=== PATIENT | male | born 1965 | race Caucasian/White ===

== ENCOUNTER 2017-04-17 13:18 | Inpatient (IN) | payer OTHER ==
[~2017-04-17] VITALS: Ht 180.3 cm; Wt 108.9 kg
[~2017-04-17 13:18] MED LIST: CATAPRES0.2 MG PO; CIPRO500 MG PO; CIPROFLOXACIN500 M1 PO; CIPROFLOXACIN500 M3 PO; COREG25 MG PO; FLAGYL 250 MG250 MG PO; FLAGYL500 MG PO; HYDROCODONE-AP1 EAC6 PO; LIPITOR 10 MG10 M1 PO; NOHOMEMEDICATIONS; NORCO 5-325 TA1 EACH PO; SENNA PO; ZOFRAN ODT4 MG PO
[2017-04-17 13:35] VITALS: BP 162/91
[2017-04-17 13:47] LABS: ABSOLUTE EOSINOPHILS 0.1 thou/uL (0.0-0.7); ABSOLUTE LYMPHOCYTES 1.4 thou/uL (0.8-5.3); ABSOLUTE MONOCYTES 0.7 thou/uL (0.0-1.2); ABSOLUTE NEUTROPHILS 8.1 thou/uL (1.6-8.1); BASOPHILS 0.5 %; EOSINOPHILS 0.9 %; HEMATOCRIT 40.3 % (42.0-52.0); HEMOGLOBIN 13.4 gm/dL (14.0-18.0); LYMPHOCYTES 13.4 %; MCH 30.6 pg (26.0-34.0); MCHC 33.2 g/dL (28.0-37.0); MONOCYTES 6.4 %; MPV 7.7 fl. (7.2-11.1); NUCLEATED RBCS 0 /100WBC; PLATELET COUNT* 240 thou/uL (150-400); POLYS 78.8 %; RBC 4.38 mil/uL (4.50-6.00); RDW-CV 15.7 % (10.5-14.5); WBC 10.3 thou/uL (4.0-11.0)
[2017-04-17 13:55] LABS: CALCIUM 8.6 mg/dL (8.5-10.1)
[2017-04-17 14:00] LABS: ALBUMIN 3.7 g/dL (3.4-5.0); TOTAL BILIRUBIN 0.4 mg/dL (<0.1-1.0); TOTAL PROTEIN 7.9 g/dL (6.4-8.2)
[2017-04-17 17:50] VITALS: BP 144/71
[2017-04-17 20:00] VITALS: BP 141/89
[2017-04-18] VITALS: BP 143/92
[2017-04-18 04:01] LABS: HEMATOCRIT 37.6 % (42.0-52.0); HEMOGLOBIN 12.5 gm/dL (14.0-18.0); MCH 30.5 pg (26.0-34.0); MCHC 33.2 g/dL (28.0-37.0); MCV 91.9 fL (80.0-100.0); MPV 7.8 fl. (7.2-11.1); RBC 4.09 mil/uL (4.50-6.00); RDW-CV 15.5 % (10.5-14.5); WBC 8.6 thou/uL (4.0-11.0)
[2017-04-18 04:35] LABS: ALBUMIN 3.4 g/dL (3.4-5.0); CALCIUM 8.2 mg/dL (8.5-10.1); CREATININE 1.1 mg/dL (0.6-1.3); MAGNESIUM 1.9 mg/dL (1.8-2.4); POTASSIUM 3.9 mmol/L (3.5-5.1); TOTAL BILIRUBIN 0.9 mg/dL (<0.1-1.0); TOTAL PROTEIN 6.8 g/dL (6.4-8.2)
[2017-04-18 04:37] VITALS: BP 177/94
[2017-04-18 08:45] VITALS: BP 142/91
[2017-04-18 11:57] VITALS: BP 144/86
[2017-04-18 14:52] LABS: URINE BILIRUBIN NEGATIVE (Negative); URINE BLOOD NEGATIVE (Negative); URINE CLARITY CLEAR; URINE COLOR YELLOW; URINE GLUCOSE-RANDOM NEGATIVE (Negative); URINE KETONES NEGATIVE (Negative); URINE LEUKOCYTES-REFLEX NEGATIVE (Negative); URINE NITRITE-REFLEX NEGATIVE (Negative); URINE PROTEIN TRACE (Negative); URINE SPECIFIC GRAVITY 1.025 (1.005-1.030); URINE UROBILINOGEN 0.2 E.U./dl (0.2-1.0)
[2017-04-18 16:00] VITALS: BP 150/95
[2017-04-18 23:39] VITALS: BP 130/82
[2017-04-19 04:40] LABS: HEMATOCRIT 34.3 % (42.0-52.0); HEMOGLOBIN 11.4 gm/dL (14.0-18.0); MCH 30.6 pg (26.0-34.0); MCHC 33.2 g/dL (28.0-37.0); MCV 92.3 fL (80.0-100.0); RBC 3.72 mil/uL (4.50-6.00); RDW-CV 15.7 % (10.5-14.5); WBC 7.6 thou/uL (4.0-11.0)
[2017-04-19 05:03] LABS: ALBUMIN 2.9 g/dL (3.4-5.0); CALCIUM 8.3 mg/dL (8.5-10.1); POTASSIUM 3.2 mmol/L (3.5-5.1); TOTAL BILIRUBIN 0.6 mg/dL (<0.1-1.0)
[2017-04-19 08:30] VITALS: BP 122/76
[2017-04-19 15:30] VITALS: BP 131/86
[2017-04-19 20:45] VITALS: BP 154/97
[2017-04-20 00:56] VITALS: BP 140/90
[2017-04-20 04:32] LABS: HEMATOCRIT 32.5 % (42.0-52.0); HEMOGLOBIN 10.7 gm/dL (14.0-18.0); MCH 30.7 pg (26.0-34.0); MCV 93.1 fL (80.0-100.0); MPV 8.1 fl. (7.2-11.1); RBC 3.49 mil/uL (4.50-6.00); RDW-CV 15.6 % (10.5-14.5); WBC 6.2 thou/uL (4.0-11.0)
[2017-04-20 04:59] LABS: ALBUMIN 2.7 g/dL (3.4-5.0); CALCIUM 8.5 mg/dL (8.5-10.1); POTASSIUM 4.1 mmol/L (3.5-5.1); TOTAL BILIRUBIN 0.3 mg/dL (<0.1-1.0); TOTAL PROTEIN 6.7 g/dL (6.4-8.2)
[2017-04-20 08:30] VITALS: BP 155/87
[2017-04-20] MEDS ORDERED: FLAGYL500 MG PO ×2 (09:47→15:11)
[2017-04-20] MEDS ORDERED: AUGMENTIN 875-1 EACH PO (09:47)
[2017-04-20 14:56] VITALS: BP 155/87
[2017-04-20 15:52] VITALS: BP 155/87
== END 2017-04-20 15:53 | disposition home or self-care (01) | DRG 392 ==
LOC: M.ERS 13:18 → M.ORTHSURG 16:53 → M.TBA-ER 16:53 → M.ORTHSURG 17:37
PROVIDERS: Physician Assistant; ADMIT Internal Medicine
DX: K57.20 Diverticulitis of large intestine with perforation and abscess without bleeding (principal); I10 Essential (primary) hypertension; E78.00 Pure hypercholesterolemia, unspecified; Z88.8 Allergy status to other drugs, medicaments and biological substances; Z90.49 Acquired absence of other specified parts of digestive tract

== ENCOUNTER 2017-04-21 10:13 | Emergency (ER) | payer OTHER ==
[~2017-04-21] VITALS: Ht 180.3 cm; Wt 108.9 kg
[~2017-04-21 10:13] MED LIST changes: +AUGMENTIN 875-1 EACH PO
[2017-04-21 11:51] VITALS: BP 136/86
== END 2017-04-21 11:51 | disposition home or self-care (01) ==
LOC: M.ERS 10:13
DX: M25.511 Pain in right shoulder (principal); I10 Essential (primary) hypertension; E78.00 Pure hypercholesterolemia, unspecified; F17.210 Nicotine dependence, cigarettes, uncomplicated; Z88.1 Allergy status to other antibiotic agents; V43.52XA Car driver injured in collision with other type car in traffic accident, initial encounter; Y93.I9 Activity, other involving external motion; Y92.89 Other specified places as the place of occurrence of the external cause; Y99.8 Other external cause status

== ENCOUNTER 2017-06-06 12:06 | Emergency (ER) | payer OTHER ==
[~2017-06-06] VITALS: Ht 180.3 cm; Wt 106.6 kg
[2017-06-06] MEDS ORDERED: CIPRO500 MG PO (12:17)
[2017-06-06 13:03] LABS: ABSOLUTE MONOCYTES 0.5 thou/uL (0.0-1.2); ABSOLUTE NEUTROPHILS 6.9 thou/uL (1.6-8.1); BASOPHILS 0.3 %; EOSINOPHILS 0.2 %; HEMATOCRIT 42.9 % (42.0-52.0); HEMOGLOBIN 14.2 gm/dL (14.0-18.0); LYMPHOCYTES 11.9 %; MCHC 33.2 g/dL (28.0-37.0); MCV 93.4 fL (80.0-100.0); MONOCYTES 6.4 %; MPV 8.2 fl. (7.2-11.1); NUCLEATED RBCS 0 /100WBC; PLATELET COUNT* 215 thou/uL (150-400); POLYS 81.2 %; RBC 4.59 mil/uL (4.50-6.00); RDW-CV 16.8 % (10.5-14.5); WBC 8.5 thou/uL (4.0-11.0)
[2017-06-06 13:08] LABS: CALCIUM 9.2 mg/dL (8.5-10.1); POTASSIUM 3.9 mmol/L (3.5-5.1)
[2017-06-06 13:13] LABS: TOTAL BILIRUBIN 0.8 mg/dL (<0.1-1.0); TOTAL PROTEIN 8.3 g/dL (6.4-8.2)
[2017-06-06] MEDS ORDERED: FLAGYL500 MG PO (14:53)
[2017-06-06] MEDS ORDERED: NORCO 5-325 TA1 EACH PO (14:53)
[2017-06-06] MEDS ORDERED: ZOFRAN ODT4 MG PO (14:53)
[2017-06-06] MEDS ORDERED: LEVAQUIN 750 M750 MG PO (14:53)
[2017-06-06 14:56] LABS: URINE BILIRUBIN NEGATIVE (Negative); URINE BLOOD NEGATIVE (Negative); URINE CLARITY CLEAR; URINE COLOR YELLOW; URINE GLUCOSE-RANDOM NEGATIVE (Negative); URINE KETONES NEGATIVE (Negative); URINE LEUKOCYTES-REFLEX NEGATIVE (Negative); URINE NITRITE-REFLEX NEGATIVE (Negative); URINE PROTEIN NEGATIVE (Negative); URINE SPECIFIC GRAVITY <= 1.005 (1.005-1.030); URINE UROBILINOGEN 0.2 E.U./dl (0.2-1.0)
[2017-06-06 15:02] VITALS: BP 153/103
== END 2017-06-06 15:01 | disposition home or self-care (01) ==
LOC: M.ERS 12:06
PROVIDERS: Personal Emergency Response Attendant
DX: K57.92 Diverticulitis of intestine, part unspecified, without perforation or abscess without bleeding (principal); I10 Essential (primary) hypertension; E78.00 Pure hypercholesterolemia, unspecified; F17.210 Nicotine dependence, cigarettes, uncomplicated; Z88.8 Allergy status to other drugs, medicaments and biological substances

== ENCOUNTER 2017-08-10 10:47 | Emergency (ER) | payer OTHER ==
[~2017-08-10] VITALS: Ht 182.9 cm; Wt 106.6 kg
[~2017-08-10 10:47] MED LIST changes: +LEVAQUIN 750 M750 MG PO
[2017-08-10 11:58] VITALS: BP 122/84
== END 2017-08-10 11:59 | disposition home or self-care (01) ==
LOC: M.ERS 10:47
DX: M79.671 Pain in right foot (principal); I10 Essential (primary) hypertension; E78.00 Pure hypercholesterolemia, unspecified; F17.210 Nicotine dependence, cigarettes, uncomplicated; Z88.8 Allergy status to other drugs, medicaments and biological substances

== ENCOUNTER 2017-12-21 11:47 | Emergency (ER) | payer OTHER ==
[~2017-12-21] VITALS: Ht 180.3 cm; Wt 108.9 kg
[2017-12-21] MEDS ORDERED: MOBIC15 MG PO (12:18)
[2017-12-21] MEDS ORDERED: CRESTOR20 MG PO (12:18)
[2017-12-21] MEDS ORDERED: ZETIA10 MG PO (12:18)
[2017-12-21] MEDS ORDERED: BENICAR40 MG PO (12:18)
[2017-12-21 13:01] LABS: ABSOLUTE EOSINOPHILS 0.2 thou/uL (0.0-0.7); ABSOLUTE LYMPHOCYTES 0.9 thou/uL (0.8-5.3); ABSOLUTE MONOCYTES 0.6 thou/uL (0.0-1.2); ABSOLUTE NEUTROPHILS 6.1 thou/uL (1.6-8.1); BASOPHILS 0.2 %; EOSINOPHILS 2.1 %; HEMATOCRIT 23.2 % (42.0-52.0); HEMOGLOBIN 7.7 gm/dL (14.0-18.0); LYMPHOCYTES 11.4 %; MCH 32.5 pg (26.0-34.0); MCHC 33.3 g/dL (28.0-37.0); MCV 97.7 fL (80.0-100.0); MONOCYTES 7.3 %; MPV 7.3 fl. (7.2-11.1); NUCLEATED RBCS 0 /100WBC; PLATELET COUNT* 284 thou/uL (150-400); RBC 2.38 mil/uL (4.50-6.00); RDW-CV 15.6 % (10.5-14.5); WBC 7.7 thou/uL (4.0-11.0)
[2017-12-21 13:14] LABS: ANION GAP 7 mmol/L (7-16); APTT 24.5 Seconds (25.0-31.3); BUN 16 mg/dL (7-18); CALCIUM 8.6 mg/dL (8.5-10.1); CHLORIDE 101 mmol/L (98-107); CO2 31 mmol/L (21-32); GLUCOSE 99 mg/dL (70-99); INR 0.9; POTASSIUM 3.7 mmol/L (3.5-5.1); PROTIME 9.7 Seconds (9.20-11.50); SODIUM 139 mmol/L (136-145)
[2017-12-21 13:25] LABS: ALBUMIN 3.4 g/dL (3.4-5.0); ALKALINE PHOSPHATASE 53 U/L (46-116); NT-PRO BRAIN NAT PEPTIDE 221 pg/mL (<300); SGOT 25 U/L (15-37); TOTAL BILIRUBIN 0.4 mg/dL (<0.1-1.0); TOTAL PROTEIN 6.7 g/dL (6.4-8.2); TROPONIN-I LEVEL <0.06 ng/mL (<0.06)
[2017-12-21 13:26] LABS: SGPT < 6 U/L (30-65)
[2017-12-21] MEDS ORDERED: VENTOLIN HFA 1818 GM INH (15:16)
[2017-12-21] MEDS ORDERED: LEVAQUIN 500 M500 M3 PO (15:16)
[2017-12-21 16:04] VITALS: BP 135/78
--- NOTE | 2017-12-22 11:20 | EKG ---
[place] [address] ELECTROCARDIOGRAM REPORT Name: JAVON MCGINNIS Room: [facility]#: [id number] Admission: 12/21/17 Attend Phys: Discharge: 12/21/17 Date of : 63 Report #: [id number] THIS REPORT FOR: //name// [facility] ED Test Date: 2017-12-21 Test Time: 13:04:43 Pat Name: JAVON MCGINNIS Department: Room: Gender: M Can Line Operator: [facility] : 1965 Requested By: Bria Griffin Order Number: [id number] MD: Drake Khanna Measurements Intervals [place] Rate: 88 P: 12 ID: 148 QRS: -16 QRSD: 100 T: 33 QT: 354 QTc: 429 Interpretive Statements Sinus rhythm Borderline left axis deviation RSR' in V1 or V2, right VCD or RVH Baseline wander in lead(s) V3 No previous ECG available for comparison Electronically Signed On 12-22-2017 11:20:42 MANAGER STERILE PROCESSING by Drake Khanna [email or web address] <ELECTRONICALLY SIGNED> By: Drake Khanna MD, FAC 12/22/17 1120 1304 1304 Drake Khanna MD, [facility] /EPI
== END 2017-12-21 16:04 | disposition home or self-care (01) ==
LOC: M.ERS 11:47
PROVIDERS: Nurse Practitioner Family
DX: J18.9 Pneumonia, unspecified organism (principal); D64.9 Anemia, unspecified; I10 Essential (primary) hypertension; E78.00 Pure hypercholesterolemia, unspecified; F17.210 Nicotine dependence, cigarettes, uncomplicated; Z88.8 Allergy status to other drugs, medicaments and biological substances

== ENCOUNTER 2018-05-26 07:04 | Emergency (ER) | payer OTHER ==
[~2018-05-26] VITALS: Ht 180.3 cm; Wt 108.9 kg
[~2018-05-26 07:04] MED LIST changes: +BENICAR40 MG PO; +CRESTOR20 MG PO; +LEVAQUIN 500 M500 M3 PO; +MOBIC15 MG PO; +VENTOLIN HFA 1818 GM INH; +ZETIA10 MG PO
[2018-05-26] MEDS ORDERED: CLONIDINE HCL0.3 M3 PO (07:15)
[2018-05-26] MEDS ORDERED: HYDRALAZINE 2525 MG PO (07:15)
[2018-05-26 07:24] LABS: URINE BILIRUBIN NEGATIVE (Negative); URINE BLOOD NEGATIVE (Negative); URINE CLARITY CLEAR; URINE COLOR YELLOW; URINE GLUCOSE-RANDOM NEGATIVE (Negative); URINE KETONES TRACE (Negative); URINE LEUKOCYTES-REFLEX NEGATIVE (Negative); URINE NITRITE-REFLEX NEGATIVE (Negative); URINE PROTEIN NEGATIVE (Negative); URINE UROBILINOGEN 0.2 E.U./dl (0.2-1.0)
[2018-05-26 07:43] LABS: HEMATOCRIT 37.3 % (42.0-52.0); HEMOGLOBIN 11.8 gm/dL (14.0-18.0); MCH 25.8 pg (26.0-34.0); MCHC 31.7 g/dL (28.0-37.0); MCV 81.3 fL (80.0-100.0); MPV 8.2 fl. (7.2-11.1); NUCLEATED RBCS 0 /100WBC; PLATELET COUNT* 254 thou/uL (150-400); RBC 4.59 mil/uL (4.50-6.00); RDW-CV 19.6 % (10.5-14.5); WBC 8.7 thou/uL (4.0-11.0)
[2018-05-26 08:06] LABS: ALBUMIN 3.6 g/dL (3.4-5.0); ALKALINE PHOSPHATASE 72 U/L (46-116); ANION GAP 8 mmol/L (7-16); BUN 15 mg/dL (7-18); CALCIUM 8.9 mg/dL (8.5-10.1); CHLORIDE 104 mmol/L (98-107); CO2 26 mmol/L (21-32); CREATININE 1.2 mg/dL (0.6-1.3); GLUCOSE 117 mg/dL (70-99); LIPASE 111 U/L (73-393); POTASSIUM 4.6 mmol/L (3.5-5.1); SGOT 22 U/L (15-37); SGPT 22 U/L (30-65); SODIUM 138 mmol/L (136-145); TOTAL BILIRUBIN 0.5 mg/dL (<0.1-1.0); TOTAL PROTEIN 7.4 g/dL (6.4-8.2); TROPONIN-I LEVEL <0.06 ng/mL (<0.06)
[2018-05-26 08:55] LABS: ABSOLUTE BASOPHILS 0.1 thou/uL (0.0-0.2); ABSOLUTE EOSINOPHILS 0.1 thou/uL (0.0-0.7); ABSOLUTE LYMPHOCYTES 1.3 thou/uL (0.8-5.3); ABSOLUTE MONOCYTES 0.1 thou/uL (0.0-1.2); ABSOLUTE NEUTROPHILS 7.1 thou/uL (1.6-8.1)
[2018-05-26 08:56] LABS: GIANT PLATELETS OCCASIONAL; PLATELET ESTIMATE ADEQUATE
[2018-05-26 08:57] LABS: ANISOCYTOSIS 2+; HYPOCHROMASIA 1+
[2018-05-26 08:58] LABS: OVALOCYTES Occasional
[2018-05-26 08:59] LABS: POIKILOCYTOSIS Occasional
[2018-05-26] MEDS ORDERED: FLAGYL500 M1 PO (09:15)
[2018-05-26] MEDS ORDERED: CIPROFLOXACIN500 M1 PO (09:15)
[2018-05-26 09:22] VITALS: BP 103/64
--- NOTE | 2018-05-26 14:39 | EKG ---
[place] [address] ELECTROCARDIOGRAM REPORT Name: JAVON MCGINNIS Room: [facility]#: [id number] Admission: 05/26/18 Attend Phys: Discharge: 05/26/18 Date of : 63 Report #: [id number] THIS REPORT FOR: //name// [facility] ED Test Date: 2018-05-26 Test Time: 07:39:06 Pat Name: JAVON MCGINNIS Department: Room: Gender: M Brand Protection Manager: : 1965 Requested By: Javon Galarza Order Number: [id number] MD: Kavon Tatum Measurements Intervals [place] Rate: 90 P: 7 UT: 137 QRS: -38 QRSD: 99 T: 17 QT: 348 QTc: 426 Interpretive Statements Sinus rhythm Left axis deviation Baseline wander in lead(s) V3 Compared to ECG 12/21/2017 13:04:43 Right ventricular hypertrophy no longer present Electronically Signed On 05-26-2018 14:39:47 CDT by Kavon Tatum [email or web address] <ELECTRONICALLY SIGNED> By: Kavon Tatum MD, [facility] 05/26/18 1439 0739 0739 Kavon Tatum MD, FAC /EPI
== END 2018-05-26 09:22 | disposition home or self-care (01) ==
LOC: M.ERS 07:04
PROVIDERS: Family Medicine
DX: K57.32 Diverticulitis of large intestine without perforation or abscess without bleeding (principal); R11.2 Nausea with vomiting, unspecified; F17.210 Nicotine dependence, cigarettes, uncomplicated; I10 Essential (primary) hypertension; E78.00 Pure hypercholesterolemia, unspecified; Z88.8 Allergy status to other drugs, medicaments and biological substances; Z96.652 Presence of left artificial knee joint

== ENCOUNTER 2018-07-16 09:43 | Emergency (ER) | payer OTHER ==
[~2018-07-16] VITALS: Ht 180.3 cm; Wt 108.9 kg
[~2018-07-16 09:43] MED LIST changes: +CLONIDINE HCL0.3 M3 PO; +FLAGYL500 M1 PO; +HYDRALAZINE 2525 MG PO
[2018-07-16 10:06] LABS: URINE BLOOD NEGATIVE (Negative); URINE CLARITY CLEAR; URINE COLOR DARK YELLOW; URINE GLUCOSE-RANDOM NEGATIVE (Negative); URINE KETONES 1+ (Negative); URINE LEUKOCYTES-REFLEX NEGATIVE (Negative); URINE NITRITE-REFLEX NEGATIVE (Negative); URINE PROTEIN 1+ (Negative); URINE SPECIFIC GRAVITY >= 1.030 (1.005-1.030)
[2018-07-16 10:10] LABS: ICTOTEST (BILI CONFIRMATORY) Negative (Negative); URINE BILIRUBIN 1+ (Negative)
[2018-07-16 10:21] LABS: ABSOLUTE MONOCYTES 0.6 thou/uL (0.0-1.2); ABSOLUTE NEUTROPHILS 5.9 thou/uL (1.6-8.1); BASOPHILS 0.5 %; EOSINOPHILS 0.5 %; HEMOGLOBIN 12.2 gm/dL (14.0-18.0); LYMPHOCYTES 12.7 %; MCH 27.8 pg (26.0-34.0); MCHC 33.1 g/dL (28.0-37.0); MCV 83.9 fL (80.0-100.0); MONOCYTES 7.6 %; MPV 8.3 fl. (7.2-11.1); NUCLEATED RBCS 0 /100WBC; PLATELET COUNT* 177 thou/uL (150-400); POLYS 78.7 %; RBC 4.41 mil/uL (4.50-6.00); RDW-CV 20.3 % (10.5-14.5); WBC 7.5 thou/uL (4.0-11.0)
[2018-07-16 10:29] LABS: ANION GAP 13 mmol/L (7-16); BUN 14 mg/dL (7-18); CALCIUM 9.3 mg/dL (8.5-10.1); CHLORIDE 103 mmol/L (98-107); CO2 24 mmol/L (21-32); CREATININE 1.2 mg/dL (0.6-1.3); GLUCOSE 114 mg/dL (70-99); POTASSIUM 3.9 mmol/L (3.5-5.1); SODIUM 140 mmol/L (136-145)
[2018-07-16 10:38] LABS: ALBUMIN 3.7 g/dL (3.4-5.0); ALKALINE PHOSPHATASE 74 U/L (46-116); LIPASE 165 U/L (73-393); SGOT 27 U/L (15-37); SGPT 25 U/L (30-65); TOTAL BILIRUBIN 0.7 mg/dL (<0.1-1.0); TOTAL PROTEIN 7.8 g/dL (6.4-8.2); TROPONIN-I LEVEL <0.06 ng/mL (<0.06)
[2018-07-16 10:59] LABS: ANISOCYTOSIS 1+; PLATELET ESTIMATE ADEQUATE; POIKILOCYTOSIS 1+
[2018-07-16 11:01] LABS: OVALOCYTES 1+
[2018-07-16] MEDS ORDERED: FLAGYL500 M1 PO (11:26)
[2018-07-16] MEDS ORDERED: ZOFRAN ODT4 MG DISSOLVE (11:26)
[2018-07-16] MEDS ORDERED: CIPRO500 M1 PO (11:26)
[2018-07-16] MEDS ORDERED: NORCO 5-325 TA1 EAC1 PO (11:26)
[2018-07-16 12:00] VITALS: BP 107/70
--- NOTE | 2018-07-16 16:32 | EKG ---
[place] [address] ELECTROCARDIOGRAM REPORT Name: JAVON MCGINNIS Room: [facility]#: [id number] Admission: 07/16/18 Attend Phys: Discharge: 07/16/18 Date of : 63 Report #: [id number] THIS REPORT FOR: //name// [facility] ED Test Date: 2018-07-16 Test Time: 10:05:06 Pat Name: JAVON MCGINNIS Department: Room: Gender: M Human Resource Assistant: [place] : 1965 Requested By: Mikey Cavanaugh Order Number: [id number] MD: Mayank Benítez Measurements Intervals [place] Rate: 94 P: -4 CA: 137 QRS: -37 QRSD: 106 T: 14 QT: 343 QTc: 429 Interpretive Statements Sinus rhythm Incomplete RBBB and LAFB Abnormal R-wave progression, early transition Compared to ECG 05/26/2018 07:39:06 Incomplete right bundle-branch block now present Electronically Signed On 07-16-2018 16:32:33 CDT by Mayank Benítez [email or web address] <ELECTRONICALLY SIGNED> By: Mayank Benítez MD, [facility] 07/16/18 6019 1005 1005 Mayank Benítez MD, [facility] /EPI
== END 2018-07-16 12:00 | disposition home or self-care (01) ==
LOC: M.ERS 09:43
PROVIDERS: Emergency Medicine Emergency Medical Services
DX: K57.32 Diverticulitis of large intestine without perforation or abscess without bleeding (principal); R11.2 Nausea with vomiting, unspecified; R19.7 Diarrhea, unspecified; I10 Essential (primary) hypertension; E78.00 Pure hypercholesterolemia, unspecified; F17.210 Nicotine dependence, cigarettes, uncomplicated; Z88.8 Allergy status to other drugs, medicaments and biological substances; Z96.652 Presence of left artificial knee joint

== ENCOUNTER 2018-09-15 06:55 | Inpatient (IN) | payer OTHER ==
[~2018-09-15] VITALS: Ht 180.3 cm; Wt 106.6 kg
[~2018-09-15 06:55] MED LIST changes: +CIPRO500 M1 PO; +NORCO 5-325 TA1 EAC1 PO; +ZOFRAN ODT4 MG DISSOLVE
[2018-09-15 08:15] LABS: HEMATOCRIT 42.1 % (42.0-52.0); HEMOGLOBIN 14.1 gm/dL (14.0-18.0); MCH 30.7 pg (26.0-34.0); MCHC 33.5 g/dL (28.0-37.0); MCV 91.6 fL (80.0-100.0); MPV 7.7 fl. (7.2-11.1); RBC 4.6 mil/uL (4.50-6.00); RDW-CV 18.2 % (10.5-14.5); WBC 6.1 thou/uL (4.0-11.0)
[2018-09-15 08:26] VITALS: BP 148/103
[2018-09-15 08:27] LABS: CREATININE 1.1 mg/dL (0.6-1.3); POTASSIUM 3.6 mmol/L (3.5-5.1)
[2018-09-15 18:58] VITALS: BP 129/84
--- NOTE | 2018-09-15 19:00 | NUR ---
PT ARRIVED FROM SURGERY ABOUT 174. A&Ox4 VITALS STABLE. ON 3LO2 AND CAPNO. IV PATENT, INFUSING. NPO UNTIL FURTHER INSTRUCTION FROM DR YAN. VIKAS PATENT. SCDs IN PLACE. 6 SURGICAL SITES C/D/I. PAIN CONTROLLED. COMPLAINING OF EYE IRRITATION, FLUSHED WITH SALINE, NOTE SENT TO DR FOR POSSIBLE EYE DROPS. FALL PRECAUTIONS IN PLACE. PT HAS NOT GOT UP ON SHIFT. CALL LIGHT WITHIN REACH. WILL CONTINUE TO MONITOR.
[2018-09-15 20:00] VITALS: BP 168/98
--- NOTE | 2018-09-15 21:50 | NUR ---
INITAL ASSESMENT COMPLETED AT 1999. PT REPORTED ITCHING IN RIGHT EYE. PT'S BLOOD PRESSURE ELEVATED. CALLED DR YAN AND ASKED TO RESTART PT'S HOME MEDS. RECIEVED ORDER FOR PRN METOPROLOL AND EYE DROPS.
[2018-09-16] VITALS: BP 140/76
[2018-09-16 03:48] VITALS: BP 161/90
[2018-09-16 03:57] LABS: ABSOLUTE LYMPHOCYTES 0.6 thou/uL (0.8-5.3); ABSOLUTE MONOCYTES 0.6 thou/uL (0.0-1.2); BASOPHILS 0.1 %; HEMATOCRIT 40.7 % (42.0-52.0); HEMOGLOBIN 13.4 gm/dL (14.0-18.0); LYMPHOCYTES 6.2 %; MCH 30.7 pg (26.0-34.0); MCV 92.9 fL (80.0-100.0); MONOCYTES 5.6 %; MPV 8.4 fl. (7.2-11.1); NUCLEATED RBCS 0 /100WBC; PLATELET COUNT* 156 thou/uL (150-400); POLYS 88.1 %; RBC 4.39 mil/uL (4.50-6.00); RDW-CV 18.6 % (10.5-14.5); WBC 10.2 thou/uL (4.0-11.0)
[2018-09-16 04:08] LABS: CALCIUM 8.3 mg/dL (8.5-10.1); CREATININE 1.3 mg/dL (0.6-1.3); POTASSIUM 4.2 mmol/L (3.5-5.1)
[2018-09-16 08:00] VITALS: BP 136/88
[2018-09-16 11:45] VITALS: BP 133/85
[2018-09-16 15:58] VITALS: BP 119/64
--- NOTE | 2018-09-16 17:57 | NUR ---
I ASSUMED CARE OF THE PATIENT AT 0700. HE IS ALERT AND ORIENTED X4 AND IS UP AD LISA. BED IS IN THE LOW LOCKED POSITION AND CALL LIGHT IS IN REACH. PATIENT NEEDS ARE MET AND PAIN IS MANAGED WITH PRN MEDS. REGULAR HOME MEDS WERE RESTARTED AND BLOOD PRESSURE WAS MANAGED. PATIENT WAS UP AND WALKED HALLS MULTIPLE TIMES TODAY. 6 LAP SITES WERE C/D/I AND STILL CLOSED WITH DERMABOND. PATIENT HAD A FEW VISITORS TODAY. HE HAS REMAINED NPO ALL DAY AND IS LOOKING FORWARD TO A CLEAR DIET TOMORROW. WILL CONTINUE TO MONITOR.
[2018-09-16 20:00] VITALS: BP 135/90
[2018-09-17] VITALS: BP 84/55
[2018-09-17 03:54] VITALS: BP 125/82
[2018-09-17 04:27] LABS: ABSOLUTE LYMPHOCYTES 1.1 thou/uL (0.8-5.3); ABSOLUTE MONOCYTES 0.6 thou/uL (0.0-1.2); ABSOLUTE NEUTROPHILS 5.2 thou/uL (1.6-8.1); BASOPHILS 0.3 %; EOSINOPHILS 0.3 %; HEMATOCRIT 31.5 % (42.0-52.0); LYMPHOCYTES 15.5 %; MCH 30.8 pg (26.0-34.0); MCHC 32.8 g/dL (28.0-37.0); MCV 93.9 fL (80.0-100.0); MONOCYTES 8.7 %; MPV 8.4 fl. (7.2-11.1); NUCLEATED RBCS 0 /100WBC; PLATELET COUNT* 118 thou/uL (150-400); POLYS 75.2 %; RBC 3.35 mil/uL (4.50-6.00); RDW-CV 18.6 % (10.5-14.5)
[2018-09-17 04:41] LABS: CALCIUM 8.1 mg/dL (8.5-10.1); CREATININE 1.7 mg/dL (0.6-1.3); POTASSIUM 3.4 mmol/L (3.5-5.1)
[2018-09-17 04:45] LABS: HEMOGLOBIN 10.3 gm/dL (14.0-18.0)
--- NOTE | 2018-09-17 05:06 | NUR ---
PATIENT SLEPT WELL DURING THIS SHIFT AFTER VISITORS WENT HOME. PT UP AD LISA TO BATHROOM WITH SLOW STEADY GAIT. PT REQUESTS PAIN MEDICATION Q4H AND RECEIVES PRN MORPHINE 4MG IV EACH TIME. PT IS ASLEEP AT REASSESSMENT. PT WITH SIX ABDOMINAL LAP SITES WITH DURABOND. SLIGHT REDNESS AROUND EACH; NO DRAINAGE NOTED. PT WITH FLUIDS/ANTIBIOTICS INFUSING PER DR ORDER. FREQUENTLY USED ITEMS AND CALL LIGHT WITHIN REACH. SIDERAILS UPX3. WILL CONTINUE TO MONITOR.
[2018-09-17 07:40] VITALS: BP 110/60
--- NOTE | 2018-09-17 13:00 | NUR ---
PT.RESTING IN BED. HE SAID HE LIVES WITH HIS . SHE IS TAKING VACATION TO BE AT HOME WITH HIM FOR SEVERAL DAYS AT DISCHARGE. HE DOESN'T USE DME. NO HX OF HH. HE SAID HE IS NOT WORKING AT THIS TIME. IS USUALLY INDEPENDENT. CM DOES NOT FEEL PT.WILL HAVE ANY NEEDS AT DISCHARGE AT THIS TIME.
[2018-09-17 15:51] VITALS: BP 119/72
--- NOTE | 2018-09-17 16:55 | NUR ---
PT REMAINED ALERT AND ORIENTED. PT RESTING IN ROOM. PT DENIED NEED FOR PAIN MEDS. PT TOLERATING CLEAR LIQUID DIET. FALL RISK PRECAUTIONS IN PLACE. HOURLY ROUNDING COMPLETED. WILL CONTINUE TO MONITOR.
[2018-09-17 20:00] VITALS: BP 152/91
[2018-09-18 04:32] LABS: ABSOLUTE EOSINOPHILS 0.1 thou/uL (0.0-0.7); ABSOLUTE LYMPHOCYTES 1.2 thou/uL (0.8-5.3); ABSOLUTE MONOCYTES 0.4 thou/uL (0.0-1.2); ABSOLUTE NEUTROPHILS 3.6 thou/uL (1.6-8.1); BASOPHILS 0.7 %; EOSINOPHILS 1.9 %; HEMATOCRIT 30.2 % (42.0-52.0); HEMOGLOBIN 9.8 gm/dL (14.0-18.0); LYMPHOCYTES 22.9 %; MCH 30.4 pg (26.0-34.0); MCHC 32.5 g/dL (28.0-37.0); MCV 93.6 fL (80.0-100.0); MONOCYTES 7.5 %; NUCLEATED RBCS 0 /100WBC; PLATELET COUNT* 121 thou/uL (150-400); RBC 3.23 mil/uL (4.50-6.00); RDW-CV 18.6 % (10.5-14.5); WBC 5.3 thou/uL (4.0-11.0)
[2018-09-18 04:40] LABS: CALCIUM 8.1 mg/dL (8.5-10.1); CREATININE 1.2 mg/dL (0.6-1.3); MAGNESIUM 1.6 mg/dL (1.8-2.4); POTASSIUM 3.4 mmol/L (3.5-5.1)
--- NOTE | 2018-09-18 05:03 | NUR ---
PATIENT AMBULATING IN HALLWAYS AT BEGINNING OF SHIFT. AT BEDSIDE VISITING TILL HS. PT REQUESTED PAIN MEDICATION X2 AND RECEIVED MORPHINE 4MG IV. PT ABLE TO SLEEP AFTER RECEIVING THIS. PT RECEIVED BENEDRYL 25MG IV X1 FOR ITCHING AT LAP SITES. PT WITH SIX ABD LAP SITES CLOSED WITH DURABOND. SITES EACH WITH SLIGHT REDNESS NOTED. PT WITH FLUIDS/ANTIBIOTICS INFUSING PER DR ORDER. PT UP AD LISA TO BATHROOM. PT DENIES NEEDS AT THIS TIME. FREQUENTLY USED ITEMS AND CALL LIGHT WITHIN REACH. SIDERAILS UPX2. WILL CONTINUE TO MONITOR.
[2018-09-18 08:30] VITALS: BP 145/84
[2018-09-18] MEDS ORDERED: NORCO 5-325 TA1 EAC1 PO (14:28)
[2018-09-18 14:31] VITALS: BP 145/84
--- NOTE | 2018-09-18 15:58 | NUR ---
PATIENT DISCHARGED FROM UNIT AT 1540. ALERT AND ORIENTED X 4. VITAL SIGNS STABLE ON ROOM AIR. UP INDEPENDENTLY AND AMBULATING IN HALLWAY. DISCHARGE INSTRUCTIONS, MEDICATIONS INFORMATION, AND SCRIPT GIVEN TO PATIENT. LEFT WITH ALL BELONGINGS. PATIENT LEFT WITH VIA SUV.
[2018-09-18 16:51] VITALS: BP 145/84
== END 2018-09-18 15:40 | disposition home or self-care (01) | DRG 331 ==
LOC: M.PRE 06:55 → M.TBA 07:55 → M.ORTHSURG 07:55 → M.PRE 09:57 → M.ORTHSURG 15:37
PROVIDERS: ADMIT Surgery
PROC: 8E0W4CZ Robotic Assisted Procedure of Trunk Region, Percutaneous Endoscopic Approach (ICD-10-PCS; principal; 2018-09-18)
PROC: 0DBN4ZZ Excision of Sigmoid Colon, Percutaneous Endoscopic Approach (ICD-10-PCS; principal; 2018-09-18)
DX: K57.32 Diverticulitis of large intestine without perforation or abscess without bleeding (principal); I10 Essential (primary) hypertension; E66.01 Morbid (severe) obesity due to excess calories; Z68.32 Body mass index [BMI] 32.0-32.9, adult; Z79.899 Other long term (current) drug therapy

== ENCOUNTER 2020-03-05 21:59 | Inpatient (IN) | payer OTHER ==
[~2020-03-05] VITALS: Ht 180.3 cm; Wt 111.1 kg
[2020-03-05 22:12] VITALS: BP 77/47
[2020-03-05] MEDS ORDERED: LYRICA25 MG PO (22:19)
[2020-03-05 23:14] LABS: ABSOLUTE EOSINOPHILS 0.1 thou/uL (0.0-0.7); ABSOLUTE LYMPHOCYTES 1.1 thou/uL (0.8-5.3); ABSOLUTE MONOCYTES 0.4 thou/uL (0.0-1.2); BASOPHILS 0.3 %; EOSINOPHILS 1.4 %; HEMOGLOBIN 10.5 gm/dL (14.0-18.0); LYMPHOCYTES 16.7 %; MCH 34.3 pg (26.0-34.0); MONOCYTES 6.6 %; NUCLEATED RBCS 0 /100WBC; PLATELET COUNT* 163 thou/uL (150-400); RBC 3.07 mil/uL (4.50-6.00); RDW-CV 14.7 % (10.5-14.5); WBC 6.6 thou/uL (4.0-11.0)
[2020-03-05 23:19] LABS: CALCIUM 8.4 mg/dL (8.5-10.1); CREATININE 1.8 mg/dL (0.6-1.3); POTASSIUM 4.1 mmol/L (3.5-5.1)
[2020-03-05 23:22] LABS: APTT 28.6 Seconds (25.0-31.3); PROTIME 10.5 Seconds (9.20-11.50)
[2020-03-05 23:30] LABS: ALBUMIN 3.5 g/dL (3.4-5.0); TOTAL BILIRUBIN 0.3 mg/dL (<0.1-1.0); TOTAL PROTEIN 6.6 g/dL (6.4-8.2)
[2020-03-06] VITALS (28 sets, daily range): BP systolic 112–170; BP diastolic 60–98
[2020-03-06] MEDS ORDERED: PROTONIX40 M2 PO (06:42)
[2020-03-06] MEDS ORDERED: FOLIC ACID1 MG PO (06:42)
--- NOTE | 2020-03-06 14:40 | 2DMMODE ---
[place] [address] 2 D/M-MODE ECHOCARDIOGRAM Name: JAVON MCGINNIS JR Room: [address] ADM IN .[place]eghan.#: [id number] Admission: 03/06/20 Attend Phys: Siena Murray Discharge: Date of : 63 Date of Service: 03/06/20 1439 Report #: [id number] THIS REPORT FOR: cc: Hang Prater Ghaison F. DO Liston, Michael J. MD [facility] ~ APPROVED REPORT Study performed: 03/06/2020 09:30:08 EXAM: Comprehensive 2D, Doppler, and color-flow Echocardiogram Patient Location: In-Patient Room #: 001 Status: routine BSA: 2.24 HR: 79 bpm BP: 112/67 mmHg Rhythm: NSR Other Information Study Quality: Good Indications Hypotension 2D Dimensions IVSd: 13.82 (7-11mm) LVOT Diam: 20.97 (18-24mm) LVDd: 49.26 mm PWd: 11.82 (7-11mm) Ascending Ao: 31.44 (22-36mm) LVDs: 20.80 (25-40mm) Aortic Root: 32.67 mm Volumes Left Atrial Volume (Systole) LA ESV Index: 21.20 mL/m2 Aortic Valve AoV Peak Wally.: 1.91 m/s AO Peak Gr.: 14.63 mmHg LVOT Max P.13 mmHg AO Mean Gr.: 7.62 mmHg LVOT Mean P.10 mmHg LVOT Max V: 1.51 m/s AO V2 VTI: 35.05 cm LVOT Mean V: 0.91 m/s LUIS EDUARDO (VTI): 3.00 cm2 LVOT V1 VTI: 30.50 [place] [address] 2 D/M-MODE ECHOCARDIOGRAM Name: JAVON MCGINNIS Room: [address] IN ..#: [id number] Admission: 03/06/20 Attend Phys: Siena Murray Discharge: Date of : 63 Date of Service: 03/06/20 1439 Report #: [id number] Mitral Valve E/A Ratio: 1.18 MV Decel. Time: 205.12 ms MV E Max Wally.: 1.12 m/s MV PHT: 59.49 ms MVA (PHT): 3.70 cm2 TDI E/Lateral E': 7.47 E/Medial E': 10.18 Medial E' Wally.: 0.11 m/s Lateral E' Wally.: 0.15 m/s Pulmonary Valve PV Peak Wally.: 1.13 m/s PV Peak Gr.: 5.09 mmHg Left Ventricle The left ventricle is normal size. There is normal LV segmental wall motion. Mild concentric left ventricular hypertrophy. Left ventricular systolic function is normal. LVEF is 65-70%. Transmitral Doppler flow pattern suggests impaired LV relaxation. Right Ventricle The right ventricle is normal size. The right ventricular systolic function is normal. Atria The left atrium size is normal. The right atrium size is normal. Aortic Valve The aortic valve is normal in structure. No aortic regurgitation is present. There is no aortic valvular stenosis. Mitral Valve The mitral valve is normal in structure. There is no mitral valve regurgitation noted. No evidence of mitral valve stenosis. Tricuspid Valve The tricuspid valve is normal in structure. Trace tricuspid regurgitation. No pulmonary hypertension. Pulmonic Valve The pulmonary valve is normal in structure. Trace pulmonic regurgitation[place] [address] 2 D/M-MODE ECHOCARDIOGRAM Name: JAVON MCGINNIS JR Room: [address] IN [facility]#: [id number] Admission: 03/06/20 Attend Phys: Siena Murray Discharge: Date of : 63 Date of Service: 03/06/20 1439 Report #: [id number] The aortic root is normal in size. IVC is normal in size and collapses >50% with inspiration. Pericardium There is no pericardial effusion. <Conclusion> The left ventricle is normal size. Mild concentric left ventricular hypertrophy. Left ventricular systolic function is normal. LVEF is 65-70%. Transmitral Doppler flow pattern suggests impaired LV relaxation. Trace tricuspid regurgitation. No pulmonary hypertension. IVC is normal in size and collapses >50% with inspiration. <ELECTRONICALLY SIGNED> By: Carlos Ibarra MD, FACC 03/06/20 1439 1439 1439 Carlos Ibarra MD, FACC /INF
--- NOTE | 2020-03-06 14:42 | NUR ---
Nutrition: Pt admitted with dizziness and fall. Assessed for low BMI - usual wt is 235#, but is recorded as 114#. Likely, it is actually 114kg. Please reweigh for accuracy. Heart Healthy diet ordered. Meds, labs, hx noted. Appears at low nutrition risk at this time.
[2020-03-06 14:50] LABS: CALCIUM 7.8 mg/dL (8.5-10.1); CREATININE 1.3 mg/dL (0.6-1.3); POTASSIUM 3.9 mmol/L (3.5-5.1)
--- NOTE | 2020-03-06 14:53 | NUR ---
ICU rounds: Tele status. Pt is A&O. Resides at home with , in room at bedside. No DME. Hx of HH, PT only. No hx of SNF. Hx of ARU at [facility]. Pt's goal is to return home at dc, no needs anticipated. Following.
[2020-03-06 14:54] LABS: MAGNESIUM 1.4 mg/dL (1.8-2.4); PHOSPHORUS* 2.8 mg/dL (2.5-4.9)
--- NOTE | 2020-03-06 16:14 | EKG ---
[place] [address] ELECTROCARDIOGRAM REPORT Name: JAVON MCGINNIS JR Room: [address] ADM IN M.R.#: [id number] Admission: 03/06/20 Attend Phys: Siena Murray Discharge: Date of : 63 Date of Service: 03/05/20 2225 Report #: [id number] THIS REPORT FOR: //name// [facility] ED Test Date: 2020-03-05 Test Time: 22:25:16 Pat Name: JAVON MCGINNIS Department: Room: [facility] Gender: M Executive Officer Special Warfare Team: MR : 1965 Requested By: Rufina Lugo Order Number: [id number] MD: Kavon Tatum Measurements Intervals [place] Rate: 81 P: 24 IN: 168 QRS: -42 QRSD: 102 T: 17 QT: 370 QTc: 430 Interpretive Statements Sinus rhythm Left anterior fascicular block Abnormal R-wave progression, late transition Compared to ECG 09/15/2018 08:55:23 Left anterior fascicular block persists Electronically Signed On 03-06-2020 16:14:49 STAFF RESPIRATORY THERAPIST by Kavon Tatum [email or web address] <ELECTRONICALLY SIGNED> By: Kavon Tatum MD, FAC 03/06/20 1614 24 2225 Kavon Tatum MD, FAC /EPI
--- NOTE | 2020-03-06 19:49 | NUR ---
NO ACUTE EVENTS, PAIN TREATED WITH MEDS PRN. ORIENTED X4/FC. VSS. STANDBY ASSIST FOR VOIDING.
[2020-03-07 03:58] VITALS: BP 106/66
[2020-03-07 05:28] LABS: ABSOLUTE EOSINOPHILS 0.1 thou/uL (0.0-0.7); ABSOLUTE LYMPHOCYTES 0.9 thou/uL (0.8-5.3); ABSOLUTE MONOCYTES 0.3 thou/uL (0.0-1.2); ABSOLUTE NEUTROPHILS 2.5 thou/uL (1.6-8.1); BASOPHILS 0.4 %; EOSINOPHILS 3.5 %; HEMATOCRIT 30.4 % (42.0-52.0); HEMOGLOBIN 10.2 gm/dL (14.0-18.0); LYMPHOCYTES 22.4 %; MCH 34.3 pg (26.0-34.0); MCHC 33.6 g/dL (28.0-37.0); MCV 102.2 fL (80.0-100.0); MONOCYTES 8.7 %; MPV 7.9 fl. (7.2-11.1); NUCLEATED RBCS 0 /100WBC; PLATELET COUNT* 123 thou/uL (150-400); RBC 2.98 mil/uL (4.50-6.00); RDW-CV 14.8 % (10.5-14.5); WBC 3.9 thou/uL (4.0-11.0)
[2020-03-07 05:53] LABS: ANION GAP 8 mmol/L (7-16); BUN 22 mg/dL (7-18); CALCIUM 8.7 mg/dL (8.5-10.1); CHLORIDE 106 mmol/L (98-107); CO2 24 mmol/L (21-32); CREATININE 1.2 mg/dL (0.6-1.3); GLUCOSE 107 mg/dL (70-99); POTASSIUM 4.3 mmol/L (3.5-5.1); SODIUM 138 mmol/L (136-145); TROPONIN-I LEVEL <0.06 ng/mL (<0.06)
--- NOTE | 2020-03-07 07:29 | NUR ---
ASSUMED PATIENT CARE AT 1900. ASSESSMENTS COMPLETED CHARTED. CARDIAC MONITORING IN PLACE. NO BM THIS SHIFT. HOURLY ROUNDING IN PLACE FOR PATIENT SAFETY. BED LOCKED AND IN LOWEST POSITION. CLWR.
[2020-03-07 07:53] VITALS: BP 114/73
[2020-03-07] MEDS ORDERED: COREG6.25 MG PO (09:24)
[2020-03-07 10:13] VITALS: BP 114/73
--- NOTE | 2020-03-07 11:50 | NUR ---
NO ACUTE EVENTS. SEEN AND EVALUATED BY MD. DC ORDERS, VERIFIED DC TEACHING. PT UNDERSTANDING OF DISCHARGE INSTRUCTIONS. ACCOMPANIED OUT OF THE HOSPITAL IN STABLE CONDITION TO IN PERSONAL VEHICLE.
== END 2020-03-07 11:40 | disposition home or self-care (01) | DRG 314 ==
LOC: M.ERS 21:59 → M.TBA-ER 03-06 03:08 → M.ICU 03-06 03:08
PROVIDERS: Internal Medicine; Personal Emergency Response Attendant; ADMIT Internal Medicine; ATTEND Internal Medicine
PROC: 02HV33Z Insertion of Infusion Device into Superior Vena Cava, Percutaneous Approach (ICD-10-PCS; principal; 2020-03-06)
DX: I95.9 Hypotension, unspecified (principal); N17.0 Acute kidney failure with tubular necrosis; K57.92 Diverticulitis of intestine, part unspecified, without perforation or abscess without bleeding; I38 Endocarditis, valve unspecified; S52.122A Displaced fracture of head of left radius, initial encounter for closed fracture; D64.9 Anemia, unspecified; I50.9 Heart failure, unspecified; I11.0 Hypertensive heart disease with heart failure; W18.39XA Other fall on same level, initial encounter; Z20.822 Contact with and (suspected) exposure to COVID-19; Y93.89 Activity, other specified; Z86.73 Personal history of transient ischemic attack (TIA), and cerebral infarction without residual deficits; Y92.89 Other specified places as the place of occurrence of the external cause; Z88.8 Allergy status to other drugs, medicaments and biological substances; Y99.8 Other external cause status